=== PATIENT | female | born 1995 | race American Indian/Alaskan Native ===

== ENCOUNTER 2022-06-06 14:50 | Emergency (ER) | payer SELFPAY ==
[2022-06-06 15:52] LABS: Basophils % (Auto) 0.7 % (0.0-1.8); Eosinophils % (Auto) 0.8 % (0.0-4.3); Hematocrit 36.5 % (30.3-42.9); Hemoglobin 12.2 gm/dl (10.1-14.3); Lymphocytes # (Auto) 2.6 K/mm3 (1.2-5.4); Lymphocytes % (Auto) 38.9 % (13.4-35.0); Mean Corpuscular HGB Conc 34 % (30-34); Mean Corpuscular Volume 92 fl (79-97); Monocytes # (Auto) 0.6 K/mm3 (0.0-0.8); Monocytes % (Auto) 9.1 % (0.0-7.3); Platelet Count 356 K/mm3 (140-440); Red Blood Count 3.96 M/mm3 (3.65-5.03); Red Cell Distribution Width 13.1 % (13.2-15.2)
[2022-06-06 16:05] LABS: BUN/Creatinine Ratio 17; Blood Urea Nitrogen 12 mg/dL (7-17); Calcium 9.5 mg/dL (8.4-10.2); Hemolysis Index 13
--- NOTE | 2022-06-06 16:45 | Event Note ---
ED Screening Note Date of service: 06/06/22 Time: 16:00 ED Screening Note: This initial assessment/diagnostic orders/clinical plan/treatment(s) is/are subject to change based on patients health status, clinical progression and re- assessment by fellow clinical providers in the ED. Further treatment and workup at subsequent clinical providers discretion. Patient/guardian urged not to elope from the ED as their condition may be serious if not clinically assessed and managed. Patient who reports that she is 3wks and 6 days confirmed at her doctors office in [facility]. She just moved here. For the last 3 days she has been having intermittent bleedin. She is wearing a depends panty liner and uses no more than 1 per day. She has had no ob visit this . mild menstrual cramp lik pain in pelvis. Nop fever or chills. No urinary symptoms. Initial orders include: My Active Orders 06/06/22 15:24 Type and Screen Stat Urinalysis Complete Stat Laboratory Results - last 24 hr 06/06/22 06/06/22 06/06/22 15:34 15:34 15:34 WBC 6.6 RBC 3.96 Hgb 12.2 Hct 36.5 MCV 92 MCH 31 MCHC 34 RDW 13.1 L Plt Count 356 Lymph % (Auto) 38.9 H [place] % (Auto) 9.1 H Eos % (Auto) 0.8 Baso % (Auto) 0.7 Lymph # (Auto) 2.6 [place] # (Auto) 0.6 Eos # (Auto) 0.0 Baso # (Auto) 0.0 Seg Neutrophils % 50.5 Seg Neutrophils # 3.3 Sodium 139 Potassium 4.1 Chloride 104.0 Carbon Dioxide 26 Anion Gap 13 BUN 12 Creatinine 0.7 Estimated GFR > 60 BUN/Creatinine Ratio 17 Glucose 72 Calcium 9.5 HCG, Quant 119.5 H Blood Type 06/06/22 15:34 WBC RBC Hgb Hct MCV MCH MCHC RDW Plt Count Lymph % (Auto) [place] % (Auto) Eos % (Auto) Baso % (Auto) Lymph # (Auto) [place] # (Auto) Eos # (Auto) Baso # (Auto) Seg Neutrophils % Seg Neutrophils # Sodium Potassium Chloride Carbon Dioxide Anion Gap BUN Creatinine Estimated GFR BUN/Creatinine Ratio Glucose Calcium HCG, Quant Blood Type A POSITIVE
--- NOTE | 2022-06-06 21:56 | Ultrasound Report ---
ULTRASOUND OBSTETRIC INDICATION: Vaginal bleeding. TECHNIQUE: Transabdominal. COMPARISON: None available. FINDINGS: GESTATIONAL SAC: Not seen. YOLK SAC: Not seen. EMBRYO/FETUS: Not seen. ADNEXA: The left ovary is not seen. The right ovary and uterus are unremarkable. FREE FLUID: None. ADDITIONAL FINDINGS: None. IMPRESSION: No sonographic evidence of an intrauterine or ectopic or other acute findings. Signer Name: Alessandro Arellano MD Signed: 06/06/2022 9:52 PM Workstation Name: [id number]
--- NOTE | 2022-06-06 22:09 | Emergency Department Report ---
ED Female HPI - General Chief complaint: Vaginal Bleeding Stated complaint: ABNORMAL BLEEDING Time Seen by Provider: 06/06/22 20:31 Source: patient Mode of arrival: Ambulatory Limitations: No Limitations - History of Present Illness Initial comments: 26-year-old F [place] female who resides in [place] and here visiting presents emergency department complaining of pelvic pain and vaginal bleeding and is reportedly . She reports no traumatic injury to the pelvic area no fever, chills, sweats. No chest pain palpitations. No nausea, no vomiting pain is crampy aching in nature worse with palpation some range of motion. MD Complaint: vaginal bleeding, dysuria, pelvic pain -: Gradual Severity: mild Consistency: constant Improves with: none Worsens with: none Are you Now?: Yes Associated Symptoms: vaginal bleeding, abdominal pain. denies: syncope - Related Data Allergies Allergy/AdvReac Type Severity Reaction Status Date / Time No Known Allergies Allergy Unverified 06/06/22 15:19 ED Review of Systems ROS: Stated complaint: ABNORMAL BLEEDING Other details as noted in HPI Comment: All other systems reviewed and negative ED Past Medical Hx - Past Medical History Previous Medical History?: No - Surgical History Past Surgical History?: No ED Physical Exam - General Limitations: No Limitations General appearance: alert, in no apparent distress - Head Head exam: Present: atraumatic, normocephalic - Eye Eye exam: Present: normal appearance - ENT ENT exam: Present: mucous membranes moist - Neck Neck exam: Present: normal inspection - Respiratory Respiratory exam: Present: normal lung sounds bilaterally. Absent: respiratory distress - Cardiovascular Cardiovascular Exam: Present: regular rate, normal rhythm. Absent: systolic murmur, diastolic murmur, rubs, gallop - GI/Abdominal GI/Abdominal exam: Present: soft, normal bowel sounds - Extremities Exam Extremities exam: Present: normal inspection - Back Exam Back exam: Present: normal inspection - Neurological Exam Neurological exam: Present: alert, oriented X3 - Psychiatric Psychiatric exam: Present: normal affect, normal mood - Skin Skin exam: Present: warm, dry, intact, normal color. Absent: rash ED Course Vital Signs 06/06/22 06/06/22 15:19 20:38 Temperature 98.7 F 97.7 F Pulse Rate 92 H 76 Respiratory 20 12 Rate Blood Pressure 140/77 110/80 [Right] O2 Sat by Pulse 99 Oximetry ED Medical Decision Making - Lab Data Result diagrams: 06/06/22 15:34 06/06/22 15:34 - Radiology Data Radiology results: report reviewed [facility] [address] [id number] Ultrasound Report Signed Patient: BUSTER ALMONTE MR#: [id number] : 1995 Acct:[id number] Age/Sex: 26 / F ADM Date: 06/06/22 Loc: ED Attending Dr: Ordering Physician: EMILE SOTO MD Date of Service: 06/06/22 Procedure(s): US OB <= 14 weeks fetus Accession Number(s): [id number] cc: EMILE SOTO MD ULTRASOUND OBSTETRIC INDICATION: Vaginal bleeding. TECHNIQUE: Transabdominal. COMPARISON: None available. FINDINGS: GESTATIONAL SAC: Not seen. YOLK SAC: Not seen. EMBRYO/FETUS: Not seen. ADNEXA: The left ovary is not seen. The right ovary and uterus are unremarkable. FREE FLUID: None. ADDITIONAL FINDINGS: None. IMPRESSION: No sonographic evidence of an intrauterine or ectopic or other acute findings. Signer Name: Alessandro Arellano MD Signed: 06/06/2022 9:52 PM Workstation Name: [id number] Transcribed By: MN Dictated By: Alessandro Arellano MD Electronically Authenticated By: Alessandro Arellano MD Signed Date/Time: 06/06/222151 DD/ 49 TD/TT: - Medical Decision Making 26year old female presents with first trimester vaginal bleeding and pelvic cramping. Possible etiologies of the vaginal of bleeding were considered, including but not limited to: ectopic , spontanous miscarriage, gestational trophoblastic disease, implantaton bleeding, molar and fiborids. Clinically the patient looks well, no indications for transfusion and no signs or symptoms of peritonitis. An ultrasound was performed which showed no intrauterine . Because the patient was having vaginal bleeding their RH status was not determined therefore not given. Additional labs demonstrated: After careful consideration I believe the patient is safe to be discharged home with outpatient RN OUTPATIENT SURGERY followup. I had an extensive disucssion with the patient about the possible etiologies of the vaginal bleeding and answered all their questions. I also provided education on care. The patient is agreeable to outpatient Kitchen Clerk for a 48 hour BETA-HCG. I encouraged them to call if they have any questions and return to the ED for any worsening of symptoms. Critical care attestation.: If time is entered above; I have spent that time in minutes in the direct care of this critically ill patient, excluding procedure time. ED Disposition Clinical Impression: First trimester bleeding, Threatened miscarriage in early Disposition: HOME / SELF CARE / HOMELESS Is pt being admited?: No Does the pt Need Aspirin: No Condition: Stable Instructions: Vaginal Bleeding During , First Trimester, Activity Restriction During Additional Instructions: He was seen evaluate emergency department today for pelvic pain and vaginal bleeding during . Your hCG quant was less than 120 in conjunction with an ultrasound showing no intrauterine . Based on your reported history it is likely that you have experienced a miscarriage. However due to not being confirmed it is recommended that you have you a beta hCG reevaluated in the next 2 to 3 days to ensure it is increasing. If your hCG is increasing that is a good indication of an early that is still active You should return to the hospital if you continue to have persistent and heavy vaginal bleeding, persistent pelvic pain not relieved by your prescribed medications, dizziness, shortness of breath, new and persistent fevers, other foul smelling discolored vaginal discharge, or for any other concerns. For more information about recommendations for heavy menstruation please visit the [employer] Website at [email or web address]-[email or web address]-Eyfbuycaxjtd-Aged-Women Referrals: [facility] [Provider Group] - 3-5 Days
[2022-06-06 22:37] VITALS: BP 138/51
== END 2022-06-06 22:38 | disposition home or self-care (01) ==
LOC: ED 14:50
DX: O20.0 Threatened abortion (principal); Z3A.01 Less than 8 weeks gestation of pregnancy
CPT/HCPCS: 36415; 76801; 80048; 84702; 85025; 86850; 86900; 86901; 99284